=== PATIENT | male | born 1955 | race Caucasian/White ===

== ENCOUNTER 2020-01-20 19:16 | Emergency (ER) | payer OTHER, SELFPAY ==
[2020-01-20 19:17] VITALS: BP 122/79; PULSE 74; RESP 18; TEMP 36.6; O2SAT 94; BMI 31.3
--- NOTE | 2020-01-20 19:41 | ED.RN ---
[facility] [phone].
[2020-01-20 19:42] VITALS: O2SAT 95
--- NOTE | 2020-01-20 19:49 | EKG12_ITS ---
Test Reason : FALL Blood Pressure : / mmHG Vent. Rate : 062 BPM Atrial Rate : 062 BPM P-R Int : 176 ms QRS Dur : 096 ms QT Int : 416 ms P-R-T Axes : 033 -03 017 degrees QTc Int : 422 ms Normal sinus rhythm Septal FL, age undetermined, cannot be excluded Confirmed by VERN TORO, BARON ([id number]), supervising editor trailer RANDAL LOFTON ([id number]) on 01/23/2020 3:56:54 PM Referred By: RACHEL Confirmed By:BARON PORRAS MD
--- NOTE | 2020-01-20 19:51 | CT_ITS ---
STUDY: CT CERVICAL SPINE WITHOUT CONTRAST REASON FOR EXAM: Male, 64 years old. FALL/ON COUMADIN/LAC TO FOREHEAD RADIATION DOSAGE (If Supplied By Facility): CTDIvol = ( 22.47 ) mGy, DLP = ( 447.53 ) mGycm TECHNIQUE: High resolution transaxial imaging was performed without contrast material. Sagittal and coronal images were reconstructed. Individualized dose optimization techniques were used for this CT. COMPARISON: None FINDINGS: Normal craniovertebral junction. Normal anterior atlantoaxial articulation. Normal odontoid process. Normal cervical lordosis. Normal vertebral bodies and posterior osseous elements. C2-3: Normal endplates. Normal disc height and morphology. Small, central, noncompressive disc protrusion. Normal central canal. Severe LEFT foraminal stenosis due to uncinate hypertrophy. Moderate RIGHT facet hypertrophy. C3-4: Normal endplates. Normal disc height and morphology. Normal central canal. Severe left foraminal stenosis due to uncinate and facet hypertrophy. C4-5: Normal endplates. Normal disc height and morphology. Normal central canal. Severe left foraminal stenosis due to uncinate and facet hypertrophy. C5-6: Normal endplates. Normal disc height and morphology. Normal central canal. Mild left foraminal encroachment due to uncinate and facet hypertrophy. C6-7: Normal endplates. Marked disc space narrowing. Mild, noncompressive spondylotic bar. No canal stenosis. Severe left foraminal stenosis due to uncinate hypertrophy. C7-T1: Normal endplates. Normal disc height and morphology. Normal central canal and intervertebral neuroforamina. Well-circumscribed 1.7 cm hypodense lesion in the posterior subcutaneous tissues at the C2 level, possible sebaceous cyst. CT/Spine Cervical without Contras IMPRESSION: 1. No evidence of trauma. 2. Mild degenerative changes of the cervical spine. 3. Posterior soft tissue lesion, likely sebaceous cyst. Electronically Signed: Sravanthi Islas MD at 20:48 EDT Tel , Service support ,
--- NOTE | 2020-01-20 19:51 | CT_ITS ---
STUDY: CT BRAIN WITHOUT CONTRAST REASON FOR EXAM: Male, 64 years old. FALL/ON COUMADIN/LAC TO FOREHEAD RADIATION DOSAGE (If Supplied By Facility): CTDIvol = ( 44.99 ) mGy, DLP = ( 796.11 ) mGycm TECHNIQUE: Transaxial CT imaging of the brain was performed without administration of intravenous contrast material. Individualized dose optimization techniques were used for this CT. COMPARISON: No relevant priors. FINDINGS: Mild left frontal soft tissue swelling. Normal calvarium. There is moderate cerebral atrophy with widening of the extra-axial spaces and ventricular dilatation. Normal white matter tracts of the cerebral hemispheres. Normal basal ganglia and thalami. Normal brainstem. Normal cerebellum. There is no intracranial hemorrhage. There are no findings of an acute ischemic infarction. Normal visualized paranasal sinuses. CT/Brain/Head without Contrast IMPRESSION: Mild soft tissue swelling. Chronic involutional changes of the brain. Electronically Signed: Sravanthi Islas MD at 20:42 EDT Tel , Service support ,
--- NOTE | 2020-01-20 19:52 | ED.DCSUM_ITS ---
History of Present Illness Chief Complaint: Fall Informant: Patient, Healthcare Liaison Occurred: Today Mechanism/Context: Cannot recall fall Usually ambulates: Without assistance Quality of Pain: - - no pain Current Severity: 0/10 Associated Symptoms: Amnesia. Negative for: Parasthesias, Weakness, Loss of function Narrative: Patient was drinking tonight, apparently fell, he does not recall anything. Denies any recent illnesses. According to squad he is on Coumadin, but he does not know why. - Past Medical History (1) HTN (hypertension) Status: Chronic (2) Hyperlipidemia Status: Chronic Past Medical History - Allergies and Home Meds Allergies/Adverse Reactions: Allergies No Known Allergies Allergy (Verified 01/20/20 19:17) Primary Care Physician: Nirav Osorio MD [Primary Care Provider] - Lives: Spouse/ Significant Other Smoking Status: Current every day smoker Alcohol: Heavy Review of Systems ROS: Unable to Obtain - limited due to amnestic and intoxicated General: Denies: Chills, Fever Eyes: Denies: Visual changes - bilaterally, Diplopia ENT: Denies: Bilateral ear pain, Sore throat Cardiovascular: Denies: Chest pain, Palpitations Respiratory: Denies: Dyspnea, Cough Gastrointestinal: Reports: Nausea. Denies: Abdominal pain, Vomiting Genitourinary: Denies: Dysuria, Hematuria Musculoskeletal: Denies: Neck pain, Back pain Skin: Reports: Wounds. Denies: Abscess Neurological: Reports: Headache. Denies: Weakness, Numbness Physical Exam Vital Signs/Narrative: Vital Signs Temp Pulse Resp BP Pulse Ox 01/20/20 19:42 95 01/20/20 19:17 98 F 74 18 122/79 H 94 Inital Vital Signs reviewed: Yes General: Well nourished, Well developed, - - NAD Head: Normocephalic, Atraumatic Eyes: Perrl, EOMI ENT: TM's clear, No hemotympanum or drainage. Negative for: No trauma - contusion/hematoma/tenderness left superior orb brim; no crepitance, Otorrhea, Nasal trauma - and no epistaxis Neck: Nontender, Full ROM. Negative for: Spinal Tenderness Cardiovascular: Regular rate, Regular rhythm, No murmurs Respiratory: No distress, CTA bilaterally, Chest nontender Abdomen: Soft, Nontender, Nondistended, Normal bowel sounds Back: Nontender. Negative for: Spinal Tenderness Extremeties: 1 cm laceration over the distal left taylor, with a nearby abrasion that is actively bleeding, no bony tenderness. No deformity. Skin tear left elbow/forearm, full range of motion, no bony tenderness. Otherwise extremities atraumatic, full range of motion all joints. Skin: Normal color, No rash, Trauma - superficial skin tears x 2 left elbow/forearm. 1cm full thickness clean, linear lac distal left taylor. actively bleeding abrasion just lateral to that. Neurological: Alert - to voice, Oriented x3, Cranial nerves II-XII grossly intact, Normal Strength, Normal Sensation, - - GCS 13 Psychological: Normal affect, - - grossly intoxicated Diagnostic/Tx/Re-eval Impressions Brain CT 01/20/20 19:51 IMPRESSION: Mild soft tissue swelling. Chronic involutional changes of the brain. Electronically Signed: Sravanthi Islas MD at 20:42 EDT Tel , Service support , Cervical Spine CT 01/20/20 19:51 IMPRESSION: 1. No evidence of trauma. 2. Mild degenerative changes of the cervical spine. 3. Posterior soft tissue lesion, likely sebaceous cyst. Electronically Signed: Sravanthi Islas MD at 20:48 EDT Tel , Service support , 01/20/20 19:51 Brain/Head without Contrast [CT] Stat Spine Cervical without Contras [CT] Stat Laboratory Results 01/20/20 01/20/20 01/20/20 20:08 20:08 20:08 WBC 6.8 RBC 4.32 L Hgb 14.5 Hct 41.2 MCV 95.4 H MCH 33.6 H MCHC 35.2 RDW Std Deviation 44.6 H RDW Coeff of Brittney 12.6 Plt Count 167 MPV 10.1 Immature Gran % (Auto) 0.300 Neut % (Auto) 45.4 L Lymph % (Auto) 42.1 H [place] % (Auto) 10.6 H Eos % (Auto) 1.2 Baso % (Auto) 0.4 Absolute Neuts (auto) 3.1 Absolute Lymphs (auto) 2.87 Nucleated RBC % 0 Reactive Lymphocytes RARE Platelet Estimate ADEQUATE RBC Morphology NORM C+C PT INR Sodium 130 L Potassium 3.3 L Chloride 94 L Carbon Dioxide 28.0 Anion Gap 8 BUN 12 Creatinine 0.82 Estim Creat Clear Calc 85.73 Est GFR (MDRD) Af Amer 121 Est GFR (MDRD) Non-Af 100 BUN/Creatinine Ratio 14.7 Glucose 99 Calcium 8.9 Ethyl Alcohol 268.0 01/20/20 20:08 WBC RBC Hgb Hct MCV MCH MCHC RDW Std Deviation RDW Coeff of Brittney Plt Count MPV Immature Gran % (Auto) Neut % (Auto) Lymph % (Auto) [place] % (Auto) Eos % (Auto) Baso % (Auto) Absolute Neuts (auto) Absolute Lymphs (auto) Nucleated RBC % Reactive Lymphocytes Platelet Estimate RBC Morphology PT 13.2 INR 1.1 Sodium Potassium Chloride Carbon Dioxide Anion Gap BUN Creatinine Estim Creat Clear Calc Est GFR (MDRD) Af Amer Est GFR (MDRD) Non-Af BUN/Creatinine Ratio Glucose Calcium Ethyl Alcohol - Rhythm Strip Rhythm Strip: Sinus Rhythm Rate: 62 Ectopy: None - EKG Initial EKG Interpretation: Sinus Rhythm, No Acute Injury Pattern Prior: Unchanged - Medical Decision Making Work-up is unremarkable. His head scan was negative. His INR is only 1.1, indicating that he may not be anticoagulated on warfarin. Discussed with the , she was not sure. Patient slept for several hours in the emergency department. His laceration was repaired without difficulty. The skin tear does not require any repair, it was dressed with bacitracin after being cleansed, an d he will be discharged home when he is more awake and ambulatory. Procedures - Lacerations left lower leg Length: 1 cm Depth: Sub Q Shape: Linear Prep: Sterile Conditions, Chlorhexadine Laceration Repair: Lidocaine with epi - topically, Local - additional 1cc plain 1% lido, Sutures Irrigated (ml): 40 Number of Sutures/Gonzalo: 1 Suture Information: Ethilon, Horizontal, Mattress, 4-0 Comment: dressed w bacitracin, good hemostasis ED Disposition - Plan for ED Patient: Disposition: Home or Assisted Living Diagnosis: Closed head injury, Fall, Laceration of left lower leg, Skin tear of left upper extremity, Alcohol intoxication Instructions: ED Laceration Ext Sutr Stap Tape, ED Fall Uncertain Cause, ED INTOXICATION Alcohol Referrals: Nirav Osorio MD [Primary Care Provider] - 10 Day for suture removal
[2020-01-20] MEDS: Diphth,Pertuss(Acell),Tet Vac 0.5 ML Vial IM (20:00)
[2020-01-20] MEDS: Lidocaine/Epi/Tetracaine 50 ML 1 APPLIC TOPICAL (20:01)
[2020-01-20] MEDS: Ondansetron 4 MG/2 ML Vial IV (20:01)
[2020-01-20 20:16] LABS: Absolute Lymphocyte Count 2.87 X10^3/uL (0.83-4.51); Absolute Neutrophil Count 3.1 X10^3/uL (2.0-7.7); Basophil# 0.03 X10^3/uL; Basophil% 0.4 % (0-1); Eosinophil# 0.08 X10^3/uL; Eosinophils% 1.2 % (0-5); Hematocrit 41.2 % (40-54); Hemoglobin 14.5 g/dL (13.0-16.5); Lymphocyte # 2.87 X10^3/ul (4.0); Lymphocyte % 42.1 % (19-41); Mean Corp Hgb Conc 35.2 g/dL (32-36); Mean Corpuscular Hgb 33.6 pg (27.0-32.0); Mean Corpuscular Volume 95.4 fL (80-94); Mean Platelet Vol. 10.1 fl (6.2-12.0); Monocyte# 0.72 X10^3/uL; Monocyte% 10.6 % (0-10); NRBC Flagged by Analyzer 0 % (0-5); Neutrophil % 45.4 % (47-70); POSITIVE MORPHOLOGY YES; Platelet Count 167 K/mm3 (150-450); RBC Distribution Width CV 12.6 % (11.6-14.6); RBC Distribution Width SD 44.6 fl (35.1-43.9); Red Blood Count 4.32 M/mm3 (4.6-6.2); White Blood Count 6.8 K/mm3 (4.4-11.0)
[2020-01-20 20:23] LABS: Differential Indicated SCAN CRITERIA MET
[2020-01-20 20:25] LABS: International Normalized Ratio 1.1; Prothrombin Time (Protime)PT. 13.2 SECONDS (11.7-14.9)
[2020-01-20 20:29] LABS: Anion Gap 8 (5-15); BUN 12 mg/dL (7-18); BUN/Creat Ratio 14.7 RATIO (10-20); Calcium,Total 8.9 mg/dL (8.5-10.1); Chloride 94 mmol/L (98-107); Creatinine, Serum 0.82 mg/dL (0.70-1.30); EST Glomerular Filtration Rate 100 mL/min (>60); Est Glom Filt Rate - Afr Amer 121 mL/min (>60); Estimated Creatinine Clearance 85.73 ml/min; Glucose 99 mg/dL (74-106); Potassium 3.3 mmol/L (3.5-5.1); Sodium Level 130 mmol/L (136-145)
[2020-01-20 20:30] VITALS: PULSE 78; RESP 15; O2SAT 98
[2020-01-20 20:52] LABS: Platelet Estimate ADEQUATE (ADEQ); Reactive Lymphocyte RARE; Red Cell Morphology NORM C+C NORMAL (NORM C&C)
[2020-01-20 21:24] VITALS: BP 110/71; PULSE 65; RESP 18; O2SAT 97
--- NOTE | 2020-01-20 23:17 | ED.RN ---
with pt permission, this rn contacted pt , reviewed d/c instructions with pt. pt cleared for d/c. awaiting to pick him up. verbalizes understanding of instructions and denies any further questions.
[2020-01-20 23:31] VITALS: BP 110/73; PULSE 65; RESP 15; O2SAT 98
== END 2020-01-20 23:32 | disposition home or self-care (01) ==
PROVIDERS: Emergency Provider Emergency Medicine; PCP Internal Medicine
DX: S09.90XA Unspecified injury of head, initial encounter (principal); R41.3 Other amnesia; S41.112A Laceration without foreign body of left upper arm, initial encounter; S81.812A Laceration without foreign body, left lower leg, initial encounter; F10.129 Alcohol abuse with intoxication, unspecified; W19.XXXA Unspecified fall, initial encounter; Y93.9 Activity, unspecified; Y92.9 Unspecified place or not applicable; Y99.9 Unspecified external cause status; Z23 Encounter for immunization; I10 Essential (primary) hypertension; E78.5 Hyperlipidemia, unspecified; F17.200 Nicotine dependence, unspecified, uncomplicated; Z79.82 Long term (current) use of aspirin; Z79.899 Other long term (current) drug therapy
CPT/HCPCS: 12001; 70450; 72125; 80048; 80320; 85025; 85610; 90471; 90715; 93005; 99285; A4216; G0480; J2405

== ENCOUNTER 2020-11-07 10:01 | Emergency (ER) | payer OTHER, SELFPAY ==
[2020-11-07 10:04] VITALS: BP 141/86; PULSE 84; RESP 17; TEMP 36.9; O2SAT 99; BMI 25.0
--- NOTE | 2020-11-07 10:24 | CT_ITS ---
STUDY: CT BRAIN WITHOUT CONTRAST REASON FOR EXAM: Male, 65 years old. Head injury RADIATION DOSAGE (If Supplied By Facility): CTDIvol = ( 44.99 ) mGy, DLP = ( 846.73 ) mGycm TECHNIQUE: Transaxial CT imaging of the brain was performed without administration of intravenous contrast material. The study is limited. The frontal soft tissues are partially out of the field of view. Individualized dose optimization techniques were used for this CT. COMPARISON: No relevant priors. FINDINGS: The visualized 6 x 0.6 cm focal frontal superficial soft tissue edema. Normal calvarium. There is mild cerebral atrophy with widening of the extra-axial spaces and ventricular dilatation. Normal white matter tracts of the cerebral hemispheres. Normal basal ganglia and thalami. Normal brainstem. Normal cerebellum. There is no intracranial hemorrhage. There are no findings of an acute ischemic infarction. There is mucoperiosteal inflammatory disease of the paranasal sinuses consistent with mild chronic sinusitis. CT/Brain/Head without Contrast IMPRESSION: Mild atrophy no evidence of acute hemorrhage infarct or edema. Superficial frontal soft tissue edema. No visualized underlying fracture. Electronically Signed: Delores Corbett MD at 10:55 EST Tel , Service support ,
--- NOTE | 2020-11-07 10:24 | CT_ITS ---
STUDY: CT CERVICAL SPINE WITHOUT CONTRAST REASON FOR EXAM: Male, 65 years old. Head injury RADIATION DOSAGE (If Supplied By Facility): CTDIvol = ( 21.56 ) mGy, DLP = ( 442.85 ) mGycm TECHNIQUE: High resolution transaxial imaging was performed without contrast material. Sagittal and coronal images were reconstructed. Study is limited. The axial views were obtained at a diagonal to the disc spaces. Individualized dose optimization techniques were used for this CT. COMPARISON: CT cervical spine January 20, 2020 FINDINGS: Normal craniovertebral junction. There are degenerative changes of the anterior atlantoaxial articulation. Normal odontoid process. There is straightening of the normal cervical lordosis. Normal vertebral bodies and posterior osseous elements. C2-3: There is facet arthropathy left greater than right with accompanying osteophytosis with moderate left neural foramina narrowing no significant central stenosis. C3-4: There is disc space narrowing robust facet arthropathy moderate to severe left neural foramina narrowing mild central stenosis. C4-5: There is disc space narrowing facet arthropathy moderate to severe left neural foraminal narrowing, mild central stenosis. C5-6: There is spondylosis and mild left neural foramina narrowing facet arthropathy no significant central stenosis. C6-7: There is disc space narrowing left lateral disc osteophyte moderate left neural foramina narrowing mild central stenosis. C7-T1: Normal endplates. Normal disc height and morphology. Normal central canal and intervertebral neuroforamina. There is emphysematous change seen in the lung apices. There is no apparent acute loss of height or alignment. There is a sebaceous cyst in the occiput soft tissues that measures 1.[address]/Spine Cervical without Contras IMPRESSION: Multilevel degenerative change of the cervical spine. No visualized acute loss of height or alignment. Electronically Signed: Delores Corbett MD at 11:00 EST Tel , Service support ,
--- NOTE | 2020-11-07 10:27 | ED.DCSUM_ITS ---
- ER Visit Summary Date of Service: 11/07/20 Chief Complaint: [Fall with head injury] History of Present Illness: The patient is a 65 M [presents to the emergency department with complaint of a fall that occurred yesterday evening. Patient believes the fall occurred prior to 8 PM when his family came home from [place]. Patient had been drinking and really cannot remember what happened. Patient apparently was cleaned up by his and today his son recommended that he come in and get evaluated. Patient complaining of some mild neck pain. He denies any visual changes or dizziness. Describes a mild headache. Patient not currently anticoagulated. Patient has history of hypertension and high chol esterol. Patient has been ambulating without difficulty today. Unsure of his last tetanus shot.] Patient states that he was off work yesterday and had at least 3 [employer] lizbeth beers and several gin and tonic drinks. Physical Examination: [HEENT-PERRLA, EOMI. Cranial nerves II through XII grossly intact. TMs clear. Mucous membranes moist. No adenopathy. Patient has a 3 cm scalp laceration over the right parietal scalp that is well approximated with no evidence of bleeding. No bony step-offs or depressions noted. Patient also has a small 1 cm horizontal laceration above the left eyebrow that is well approximated without any evidence of bleeding at this time. Cardiovascular-regular rate and rhythm without murmur or ectopy Lungs-clear to auscultation, chest wall stable without crepitus or subcu emphysema Abdomen-normoactive bowel sounds, soft, nontender, no rebound or rigidity, no peritoneal signs. Extremities-intact ?4, normal range of motion, normal pulses, atraumatic] Test Results: [CT scan of the brain without contrast showed chronic involutional changes with some soft tissue swelling noted over the left forehead. Patient had a CT of the cervical spine that was read by radiology as no acute fractures or dislocations. Patient was noted to have degenerative changes.] Emergency Department Course and Treatment: [Patient received a tetanus booster. Patient's lacerations were not repaired as it has been at least 14 to 15 hours since injury and they are well approximated and not bleeding.] Treatment Plan: [Patient advised to follow-up with his primary care physician in 3 to 5 days for wound check. Patient advised to return if difficulty with balance or speech or vomiting or condition should worsen anyway. Patient is advised to decrease his alcohol intake.] Disposition: [Discharged home in stable condition] Impression: [Closed head injury/concussion Scalp laceration 3 cm-old and no repair indicated 1 cm forehead laceration-old and small and no repair indicated Alcohol abuse] This note was generated with [employer] dictation software. It may contain incorrect words, spelling, and punctuation that were not noted in review of the chart prior to signing ED Disposition - Plan for ED Patient: Referrals: Nirav Osorio MD [Primary Care Provider] -
[2020-11-07] MEDS: Diphth,Pertuss(Acell),Tet Vac 0.5 ML Vial IM (11:01)
--- NOTE | 2020-11-07 11:32 | ED.DEP ---
ED Disposition - Plan for ED Patient: Instructions: ED Mechanical Fall, ED Head Injury (Adult), ED Laceration, Old: Not Sutured, ED Alcohol Intoxication Referrals: Nirav Osorio MD [Primary Care Provider] - 3-5 Days
[2020-11-07 11:39] VITALS: RESP 17
--- NOTE | 2020-11-07 11:39 | ED.RN ---
no reaction noted at injection site.
== END 2020-11-07 11:39 | disposition home or self-care (01) ==
PROVIDERS: Emergency Provider Emergency Medicine; PCP Internal Medicine
DX: S06.0X9A Concussion with loss of consciousness of unspecified duration, initial encounter (principal); S01.01XA Laceration without foreign body of scalp, initial encounter; S01.81XA Laceration without foreign body of other part of head, initial encounter; M54.2 Cervicalgia; Z23 Encounter for immunization; F10.10 Alcohol abuse, uncomplicated; W19.XXXA Unspecified fall, initial encounter; Y93.9 Activity, unspecified; Y92.9 Unspecified place or not applicable; Y99.9 Unspecified external cause status; I10 Essential (primary) hypertension; E78.00 Pure hypercholesterolemia, unspecified
CPT/HCPCS: 70450; 72125; 90471; 90715; 99282

== ENCOUNTER 2023-04-28 18:20 | Emergency (ER) | payer MEDICARE, SELFPAY ==
[2023-04-28 18:21] VITALS: BP 162/99; PULSE 69; RESP 16; TEMP 36.7; O2SAT 100; BMI 22.0
--- NOTE | 2023-04-28 18:36 | CT_ITS ---
STUDY: CT BRAIN WITHOUT CONTRAST REASON FOR EXAM: Male, 67 years old. Injury/Pain RADIATION DOSAGE (If Supplied By Facility): CTDIvol = ( 44.99 ) mGy, DLP = ( 829.85 ) mGycm TECHNIQUE: Transaxial CT imaging of the brain was performed without administration of intravenous contrast material. Individualized dose optimization techniques were used for this CT. COMPARISON: 11/07/2020 FINDINGS: Normal soft tissue structures. Normal calvarium. Normal size ventricles and extra-axial spaces for the patient''s age. Normal white matter tracts of the cerebral hemispheres. Normal basal ganglia and thalami. Normal brainstem. Normal cerebellum. There is no intracranial hemorrhage. There are no findings of an acute ischemic infarction. Normal visualized paranasal sinuses. CT/Brain/Head without Contrast IMPRESSION: Normal unenhanced CT scan of the brain. Electronically Signed: Luis Alberto Mcmillan MD at 19:26 EDT ,
--- NOTE | 2023-04-28 18:37 | CT_ITS ---
STUDY: CT CERVICAL SPINE WITHOUT CONTRAST REASON FOR EXAM: Male, 67 years old. Injury/Pain RADIATION DOSAGE (If Supplied By Facility): CTDIvol = ( 17.01 ) mGy, DLP = ( 347.28 ) mGycm TECHNIQUE: High resolution transaxial imaging was performed without contrast material. Sagittal and coronal images were reconstructed. Individualized dose optimization techniques were used for this CT. COMPARISON: 11/07/2020 FINDINGS: Normal craniovertebral junction. There are degenerative changes of the anterior atlantoaxial articulation. Normal odontoid process. Normal cervical lordosis. Normal vertebral bodies and posterior osseous elements. C2-3: Moderate right facet hypertrophy with ankylosis of facet joint produces mild right neural foraminal stenosis. Left uncovertebral hypertrophy produces mild left neural foraminal stenosis. No central spinal stenosis. C3-4: Moderate left facet hypertrophy and left uncovertebral hypertrophy produces moderate left neural foraminal stenosis. No central spinal stenosis. C4-5: Moderate left facet hypertrophy produces moderate left neural foraminal stenosis. No central spinal stenosis. C5-6: Mild left facet hypertrophy produces mild left neural foraminal stenosis. No central spinal stenosis. C6-7: Mild bilobed disc osteophyte complexes with ankylosis of the disc space produces mild spinal stenosis and mild bilateral neural foraminal stenosis. C7-T1: Normal endplates. Normal disc height and morphology. Normal central canal and intervertebral neuroforamina. Normal visualized soft tissue structures. CT/Spine Cervical without Contras IMPRESSION: No acute fracture or subluxation. Electronically Signed: Luis Alberto Mcmillan MD at 19:38 EDT ,
--- NOTE | 2023-04-28 18:39 | EX.ED.GENINJ ---
HPI History of Present Illness Chief Complaint: Fall Detail of Chief Complaint: Fall with blunt head trauma Informant: patient and spouse/S.O. Onset/Context/Timing Onset: Hours Mechanism/Context: Blunt Injury and Fall Location of pain/injuries: - (Occiput) Quality of Pain: Dull Current Severity: Patient is inebriated Maximum Severity: Patient is inebriated Worsened by: Unknown Relieved by: Unknown Associated Symptoms Associated Symptoms: Positive for - (Unknown) Narrative Narrative: Patient is a 67-year-old male on anticoagulant per patient and spouse. They do not know which anticoagulant he is taken. They do not know the dose. They do know that he only takes it once a day. He has been drinking. He drinks daily. He states she drank a lot. His speech is slurred. He cannot recall many things. He is not not a reliable informant. Tetanus is unknown. Tetanus Immunization: Unknown Prior similar symptoms: No Recent Illness/Hospitalization: No PFSH PFSH Medical History Alcohol abuse Home Medications amlodipine 5 mg tablet 5 mg PO DAILY 01/20/20 [History Last Taken Unknown] bisoprolol 2.5 mg-hydrochlorothiazide 6.25 mg tablet 1 ea PO DAILY 01/20/20 [History Last Taken Unknown] gabapentin 100 mg capsule 100 mg PO BID 01/20/20 [History Last Taken Unknown] lovastatin 40 mg tablet 40 mg PO DAILY 01/20/20 [History Last Taken Unknown] aspirin 81 mg tablet,delayed release 81 mg PO DAILY 11/07/20 [History Last Taken Unknown] hydrocodone-acetaminophen 5-325mg 5mg-325mg 1 tab PO Q6H PRN PRN Pain 3 days #10 TABLETS 04/28/23 [Rx Last Taken Unknown] Allergy/AdvReac Type Severity Reaction Status Date / Time No Known Allergies Allergy Verified 04/28/23 18:21 Social History (Updated 04/28/23 @ 18:[address] Osmani Murray MD) household members: spouse Smoking Status: Heavy Smoker (>10/day) alcohol intake: current alcohol intake frequency: 3 or more drinks per day ROS ROS ED Review of Systems ROS Unobtainable: due to mental status and other Details: Mental status altered because of intoxication based on patient's reported consumption of lot of alcohol and clinically slurred speech with nystagmus and dysmetria. EXAM Physical Exam Const Vital Signs: 04/28/23 18:21 04/28/23 18:53 Temperature 98.0 F Temperature Source Temporal Pulse Rate 69 Respiratory Rate 16 Respiratory Effort Normal Non-Labored Respiratory Depth Normal Respiratory Pattern Normal Blood Pressure 162/99 H Blood Pressure Mean 120 Pulse Ox 100 Oxygen Delivery Method Room Air Positive well nourished and well developed Constitutional Narrative: Clinically patient is intoxicated. General Appearance ED: well developed HEENT Reports TM's clear HEENT Narrative: There is a laceration superior right occipital parietal area. There is no palpable oppression. There is no clinical signs of basilar skull fracture. trauma Nose: Negative for septum abnormal Tympanic Membrane ED: Yes TM's clear Eyes PERRL and EOMs intact bilaterally General Eye ED: Yes other Other Details: There is no subconjunctival hemorrhage. There is nystagmus with lateral. Neck Neck Narrative: Was placed in a c-collar. His neck exam is not reliable since patient is not reliable and clinically intoxicated. Chest Wall inspection of chest normal and palpation of chest normal Resp normal respiratory effort and clear to auscultation bilaterally Cardio regular rhythm, S1 normal heart sound, S2 normal heart sound and no murmurs Rate: regular rate GI normal to inspection, nondistended, normoactive bowel sounds, non-tender, non-distended and no masses Back/Spine normal to inspection and no thoracic nor lumbar tenderness Extremity Negative for normal to inspection Extremity Narrative: Abrasions lower extremity. Abrasion left arm. Neuro No oriented x3, CN's II-XII intact bilaterally, moves all extremities, no focal motor deficits and no sensory deficits noted [place] Coma Scale: document GCS findings Spontaneous Obeys Commands Confused 14 Sensorium / Orientation: Negative for alert Plantar Reflex: Downgoing: bilateral Psych Psych Narrative: Clinically patient is intoxicated. Skin no rashes or lesions noted Skin Narrative: Multiple abrasions to upper and lower extremity and scalp laceration PROC Procedures Other Procedures Procedure(s): Scalp laceration is 1.5 cm. 2 mika were placed. Patient's wound was prepped and draped. The area was cleansed. Patient tolerated the miak without anesthesia without complication or difficulty. MDM MDM MDM Narrative Medical decision making narrative: Since patient is on anticoagulant has a GCS of 14 with traumatic injury of the brain CT of the head was obtained to rule out intracranial bleed. Since his C-spine cannot be cleared per [facility] criteria C-spine immobilization was undertaken and CT of the neck was ordered. PT/INR was obtained if patient is on Coumadin. Alcohol level was also obtained. History & Record Review Additional record(s) reviewed:: Prior ED visit (Patient has been seen in the past in the ER for alcohol intoxication.) and Prior labs Lab Data Labs: Laboratory Results - last 24 hr 04/28/23 19:00 WBC 4.0 L RBC 3.64 L Hgb 11.9 L Hct 35.1 L MCV 96.4 H MCH 32.7 H MCHC 33.9 RDW Std Deviation 52.2 H RDW Coeff of Brittney 14.7 H Plt Count 105 L MPV 10.9 Immature Gran % (Auto) 0.300 Neut % (Auto) 28.4 L Lymph % (Auto) 60.0 H Rankin % (Auto) 9.0 Eos % (Auto) 1.5 Baso % (Auto) 0.8 Absolute Neuts (auto) 1.1 L Absolute Lymphs (auto) 2.40 Nucleated RBC % 0 Differential Comment SCANNED PT 14.2 INR 1.1 Ethyl Alcohol 242.0 Radiography Diagnostic Testing: Clinical Impression(s) from Imaging Studies Brain CT 04/28/23 18:36 IMPRESSION: Normal unenhanced CT scan of the brain. Electronically Signed: Luis Alberto Mcmillan MD at 19:26 EDT Reading Location ID and State: [place] / [employer] , Service support , Cervical Spine CT 04/28/23 18:37 IMPRESSION: No acute fracture or subluxation. Electronically Signed: Luis Alberto Mcmillan MD at 19:38 EDT Reading Location ID and State: [id number] / [employer] , Service support , Discharge Plan Triage Chief Complaint: Fall ED Provider: Osmani Murray Dx/Rx/DC Orders Clinical Impression: Concussion with loss of consciousness, HTN (hypertension), Hyperlipidemia, Laceration of scalp, Acute bilateral low back pain, Acute cervical myofascial strain, Acute alcoholic intoxication in alcoholism (blood level 0.08-0.29) Instructions: ED Back Pain (Acute or Chronic), ED Concussion, ED Alcohol Intoxication, ED Neck Sprain or Strain Prescriptions: New hydrocodone-acetaminophen [hydrocodone-acetaminophen] 5-325 mg tablet 1 tab PO Q6H PRN PRN (Reason: Pain) 3 Days Qty: 10 0RF No Action lovastatin 40 MG tablet 40 mg PO DAILY amlodipine 5 MG tablet 5 mg PO DAILY bisoprolol-hydrochlorothiazide 1 EACH tablet 1 ea PO DAILY gabapentin 100 MG capsule 100 mg PO BID aspirin 81 MG tablet,delayed release (DR/EC) 81 mg PO DAILY Primary Care Provider: Nirav Osorio Referrals: Nirav Osorio MD [Primary Care Provider] - 10 Day for suture removal Activity Restrictions/Additional Instructions: 1. Keep wound clean and dry for the next 24 to 48 hours. 2. Have mika removed in 10 days 3. Apply ice to areas of discomfort 6-10 times a day for the next 3 to 5 days 4. You will hurt in more places and you presently do 5. You may feel worse over the next 24 to 48 hours and spite of appropriate pain medication 6. You may hurt for greater than a week Disposition Disposition: Home, Self Care
[2023-04-28] MEDS: Diphth,Pertuss(Acell),Tet Vac 0.5 ML Vial IM (18:51)
[2023-04-28] MEDS: Lidocaine 1% (20 ml mdv) 20 ML Vial INFILT (18:51)
[2023-04-28 19:06] LABS: Absolute Neutrophil Count 1.1 X10^3/uL (2.0-7.7); Basophil# 0.03 X10^3/uL; Basophil% 0.8 % (0-1); Eosinophil# 0.06 X10^3/uL; Eosinophils% 1.5 % (0-5); Hematocrit 35.1 % (40-54); Hemoglobin 11.9 g/dL (13.0-16.5); Mean Corp Hgb Conc 33.9 g/dL (32-36); Mean Corpuscular Hgb 32.7 pg (27.0-32.0); Mean Corpuscular Volume 96.4 fL (80-94); Mean Platelet Vol. 10.9 fl (6.2-12.0); Monocyte# 0.36 X10^3/uL; NRBC Flagged by Analyzer 0 % (0-5); Neutrophil # 1.14 X10^3/uL (2.7-7.7); Neutrophil % 28.4 % (47-70); POSITIVE MORPHOLOGY YES; Platelet Count 105 K/mm3 (150-450); RBC Distribution Width CV 14.7 % (11.6-14.6); RBC Distribution Width SD 52.2 fl (35.1-43.9); Red Blood Count 3.64 M/mm3 (4.6-6.2)
[2023-04-28 19:12] LABS: Differential Indicated SCAN CRITERIA MET
[2023-04-28 19:14] LABS: International Normalized Ratio 1.1; Prothrombin Time (Protime)PT. 14.2 SECONDS (11.7-14.9)
[2023-04-28 19:55] LABS: Differential Comment SCANNED
--- NOTE | 2023-04-28 20:05 | EKG12_ITS ---
Test Reason : CP Blood Pressure : / mmHG Vent. Rate : 063 BPM Atrial Rate : 063 BPM P-R Int : 204 ms QRS Dur : 086 ms QT Int : 394 ms P-R-T Axes : 082 057 074 degrees QTc Int : 403 ms Normal sinus rhythm Normal ECG Confirmed by IVONE CLAUDIO ([id number]), make up editor DREA HALL ([id number]) on 05/18/2023 10:15:48 AM Referred By: Confirmed By:IVONE CLAUDIO
[2023-04-28 20:35] VITALS: BP 141/81; PULSE 61; RESP 16; O2SAT 98
== END 2023-04-28 20:43 | disposition home or self-care (01) ==
PROVIDERS: Emergency Provider Emergency Medicine; PCP Internal Medicine; Visit Provider Emergency Medicine
DX: S01.01XA Laceration without foreign body of scalp, initial encounter (principal); F10.229 Alcohol dependence with intoxication, unspecified; S06.0X9A Concussion with loss of consciousness of unspecified duration, initial encounter; S16.1XXA Strain of muscle, fascia and tendon at neck level, initial encounter; W19.XXXA Unspecified fall, initial encounter; Z23 Encounter for immunization; I10 Essential (primary) hypertension; M54.50 Low back pain, unspecified; E78.5 Hyperlipidemia, unspecified; F17.200 Nicotine dependence, unspecified, uncomplicated; Z79.82 Long term (current) use of aspirin; Z79.899 Other long term (current) drug therapy; Z79.01 Long term (current) use of anticoagulants
CPT/HCPCS: 12001; 70450; 72125; 82077; 85025; 85610; 90471; 90715; 93005; 99283; A4216